=== PATIENT | female | born 1940 | race Caucasian/White ===

== ENCOUNTER 2017-02-19 09:28 | Inpatient (IN) | payer OTHER ==
--- NOTE | 2017-02-10 10:35 | GHP ---
[f rep st] PREOP HISTORY AND PHYSICAL DATE OF ADMISSION: 02/19/2017. She will be an a.m. admission for surgery at [facility] on Sunday February 19, 2017. PROBLEM: Left hip arthritis. HISTORY OF PRESENT ILLNESS: The patient is a 76-year-old woman admitted for a left total hip arthroplasty. I did her right total hip arthroplasty on November 12, 2016. She has had a very good result. She has had progressive pain in both hips for 1 year. She is having daily pain and night pain. Her activities are very limited. She has used ibuprofen. She has trouble putting on her shoes and socks on the left foot. She has tried physical therapy, but it did not help and it aggravated her pain. Her activities of daily living are now very limited. She will undergo a left total hip arthroplasty. PAST MEDICAL HISTORY: She has history of asthma. She is also treated for squamous cell carcinoma. No history of serious MRSA infections, DVT, heart disease or sleep apnea. CURRENT MEDICATIONS: Advair inhaler. She takes vitamins and calcium. DRUG ALLERGIES: Sulfa causes a rash. SOCIAL HISTORY: The patient is . She is a retired high school principal. She is a former smoker. She occasionally drinks alcohol. FAMILY HISTORY: Negative. PHYSICAL EXAMINATION: VITAL SIGNS: Height 5 feet 7 inches, weight 133 pounds. BMI 20.5. EYES: Conjunctivae and sclerae are clear. Pupils are round and reactive. MOUTH: Good oral hygiene. No loose teeth. CHEST: Clear. No wheezing. HEART: Regular rhythm. No murmurs. EXTREMITIES: Pertinent findings limited to her left hip. She has full hip extension and 90 degrees of flexion. External rotation 10 degrees. Internal rotation 0 degrees. Abduction 10 degrees. IMAGING: Her films show very severe degenerative arthritis of the left hip. She is [id number]. Extensive osteophyte formation is present. She is about 3 mm short on the left. The components for her right total hip arthroplasty look excellent. IMPRESSION ON ADMISSION: 1. Left hip severe degenerative arthritis. 2. Four months status post successful right total hip arthroplasty. 3. Treatment for asthma. PLAN: She will undergo a left total hip arthroplasty. The surgery has been described to her, including the risks, complications, expectations and recovery time. I have discussed with her the risk of dislocation, leg length inequality , infection and sciatic nerve injury. She understands there is a small risk for future revision surgery. I have advised her that with bilateral procedures , there can be mild [id number] differences in the recovery and even in the final result. All her questions have been answered, and she consents to surgery. /[id number]/MODL MTDD
[~2017-02-19 09:28] MED LIST: ACETAMINOPHEN 325 MG TAB PO ONE; CEFAZOLIN 2 GM/DEXTR 100 ML IV ONE; CHLORHEXIDINE GLUC HIBICLENS 118 ML BTL TP ONE; DEXAMETHASONE 4 MG/ML VIAL IVP ONE; FAMOTIDINE 20 MG TAB PO ONE; POVIDONE-IODINE 20 ML in SODIUM CL IRRIG SOLUTION 500 ML IRR ONE; ROPI/epiNEPH/KETOROLAC JOINT COCKTAIL IU ONE; TRANEXAMIC ACID 1,200 MG in NS 100 ML IV ONE
[2017-02-19] MEDS ORDERED: SKIN ADHESIVE (DERMABOND) 1 EACH TP ONE (09:49)
[2017-02-19] MEDS ORDERED: EPINEPHrine 1 MG/10 ML SYR IVP ONE (09:49)
[2017-02-19] MEDS ORDERED: ceFAZolin 1 GM/5 ML SYR ONE (09:49)
[2017-02-19] MEDS ORDERED: LIDOCAINE 1% 5 ML SDV ID PRN (10:14)
[2017-02-19] MEDS ORDERED: LR 1,000 ML IV ONE (10:14)
[2017-02-19] MEDS ORDERED: DEXAMETHASONE 4 MG/ML VIAL ONE (10:20)
[2017-02-19] MEDS ORDERED: CEFAZOLIN 2 GM/DEXTROSE/100 ML BAG IV ONE (10:21)
[2017-02-19] MEDS ORDERED: FAMOTIDINE 20 MG TAB ONE (10:21)
[2017-02-19] MEDS ORDERED: ACETAMINOPHEN 325 MG TAB ONE (10:21)
[2017-02-19] MEDS ORDERED: fentaNYL 100 MCG/2 ML INJ ONE ×2 (11:07→14:35)
[2017-02-19] MEDS ORDERED: MIDAZOLAM 2 MG/2 ML VIAL ONE ×2 (11:08→12:13)
[2017-02-19] MEDS ORDERED: ONDANSETRON 4 MG/2 ML VIAL ONE (11:08)
[2017-02-19] MEDS ORDERED: PROPOFOL/EMULSION 500 MG/50 ML BOTTLE IV ONE (11:08)
[2017-02-19] MEDS ORDERED: PROPOFOL 200 MG/20 ML VIAL ONE (12:42)
--- NOTE | 2017-02-19 13:59 | POSTOPPROG ---
Post Op Note Date of Operation: 02/19/17 Surgeon: Rupert Andrews [employer] Supervisor: Branden Anesthesiologist: Jeremiah Anesthesia: IV Sedation, Spinal Post-op Diagnosis: L hip arthtitis Procedure: L MILES Inf/Abcess present in the surg proc area at time of surgery?: No EBL: 100-500
[2017-02-19] MEDS ORDERED: NS 500 ML IV PRN (14:14)
[2017-02-19] MEDS ORDERED: BISACODYL 10 MG SUPP PR PRN (14:14)
[2017-02-19] MEDS ORDERED: diphenhydrAMINE 25 MG CAP PO PRN (14:14)
[2017-02-19] MEDS ORDERED: ONDANSETRON 4 MG/2 ML VIAL IVP PRN (14:14)
[2017-02-19] MEDS ORDERED: DIPHENOXYLATE/ATROPINE LOMOTIL 1 TAB PO PRN (14:14)
[2017-02-19] MEDS ORDERED: PHARMACY PAIN CONSULT 1 EA MISC PRN (14:14)
[2017-02-19] MEDS ORDERED: LACTULOSE 20 GM/30 ML UDCUP PO PRN (14:14)
[2017-02-19] MEDS ORDERED: ONDANSETRON DISINTEGRATING 4 MG TAB PO PRN (14:14)
[2017-02-19] MEDS ORDERED: POLYETHYLENE GLYCOL 3350 17 GM PKT PO PRN (14:14)
[2017-02-19] MEDS ORDERED: CYCLOBENZAPRINE 10 MG TAB PO PRN (14:14)
[2017-02-19] MEDS ORDERED: MAGNESIUM HYDROXIDE 30 ML UDCUP PO PRN (14:14)
[2017-02-19] MEDS ORDERED: METOCLOPRAMIDE 10 MG/2 ML VIAL IVP PRN (14:14)
[2017-02-19] MEDS ORDERED: TEMAZEPAM 15 MG CAP PO PRN (14:14)
[2017-02-19] MEDS ORDERED: traMADol 50 MG TAB PO PRN (14:14)
[2017-02-19] MEDS ORDERED: KETOROLAC 30 MG/1 ML SDV IVP PRN (14:14)
[2017-02-19] MEDS ORDERED: PROMETHAZINE HCL 25 MG SUPPR PR PRN (14:14)
[2017-02-19] MEDS ORDERED: LR 1,000 ML IV SCH (14:30)
[2017-02-19] MEDS ORDERED: hydrALAZINE 20 MG/ML VIAL IVP PRN (14:30)
[2017-02-19] MEDS ORDERED: KETOROLAC 30 MG/1 ML SDV ONE (14:35)
[2017-02-19] MEDS ORDERED: oxyCODONE IR 5 MG TAB ONE (14:36)
--- NOTE | 2017-02-19 14:57 | GOP ---
[f rep st] OPERATIVE REPORT DATE OF OPERATION: 02/19/2017 SURGEON: Rupert Andrews MD HAT CONE INSPECTOR: ADRIENNE Campbell CFA. ANESTHESIA: A combination of Marcaine, spinal, and IV sedation by Dr. Sabine Daniels. PREOPERATIVE DIAGNOSIS: Left hip degenerative arthritis. POSTOPERATIVE DIAGNOSIS: Left hip degenerative arthritis. PROCEDURE PERFORMED: Left total hip arthroplasty, ceramic femoral head on highly cross-linked polye thylene cup liner. FINDINGS: DESCRIPTION OF PROCEDURE: The patient was given 2 g of IV Ancef preoperatively within 60 minutes of surgery. She also received IV tranexamic acid at a dose of 20 mg/kg. She was placed on the operat ing room table and given spinal anesthesia with Marcaine by Dr. Daniels. She was then placed supine and given IV sedation. A Williamson catheter was not used. Because she had a skin abnormality on her l ower legs, I did not use a MICHAEL stocking on her non surgical side. She did have an SCD. She was rol led to the right lateral decubitus position. The position was secured with the pegboard table attac hment. An axillary roll was used, and all pressure points were carefully padded. I was careful to lock her pelvis in a rigid vertical position. Her perineum was isolated with plastic adhesive drape s. Her left hip and left lower extremity were prepped with ChloraPrep. They were draped free using sterile sheets, stockinette, and Ioban plastic drapes. I put an additional wrap of Coban around he r left lower leg. The [employer] time-out was performed to verify the correct surgical side and site, a nd the correct patient identity. The [place] time-out was also performed. I made a 4 to 5-inch straight oblique posterolateral hip skin incision. The subcutaneous tissues we re sharply divided, and hemostasis was obtained using electrocautery. Her fascia berna was identifie d. I just split a small section of the fascia berna. I then curved posteriorly and proximally and s plit the fascia of the gluteus ryan and bluntly split the muscle fibers. I was using a modified direct superior approach. The Charnley self-retaining retractor was inserted. Her sciatic nerve wa s located, partially exposed and protected throughout the procedure. The external rotators and the posterior hip capsule were divided in separate layers, tagged and reflected posteriorly. I left the piriformis intact and the quadratus intact. A smooth 8-inch Steinmann pin was inserted vertically into the ilium, superior to the acetabulum. A 1/8-inch drill bit was inserted vertically into the g reater trochanter and parallel to the first pin. The distance between the 2 was measured for leg le ngth reference. Her femoral head was dislocated posteriorly. Severe degenerative changes were pres ent on the femoral head. Her femoral neck was osteotomized at the appropriate level and inclination . I was careful to preserve all of the posterior and anterior capsule. The remnant of her damaged lab rum was excised. I prepared the femur first. This allowed me to instructional interventionist the amount of natural femoral neck anteversion . She had 12-15 degrees of natural femoral neck anteversion. This allowed me to later determine th e correct amount of cup anteversion. The canal was opened laterally with a box chisel. I reamed an d broached sequentially up to a size 7. The size 7 broach was used as a trial stem. I was careful to lateralize adequately. Appropriate retractors were inserted to expose her acetabulum. The acetabulum was reamed sequential ly up to 51 mm. I selected a 52 mm [place] Tritanium solid-backed hemispherical shell. This was ta pped securely into place in the proper degree of inclination and anteversion. I inserted a screw ho le metal dome hole plug. I performed a series of trial reductions to determine length and stability . I took an intraoperative cross-table AP pelvis x-ray. Leg lengths looked appropriate. It looked like I could have a little more cup anteversion. I went ahead and repositioned the cup in 5 or 10 degrees of additional anteversion. The cup fixation was very tight, and I did not think supplementa l screw fixation was necessary. The 10-degree lip Rayo X3 highly cross-linked polyethylene liner was inserted and tapped securely into place. I dialed the 10-degree overhang so it was directly posteriorly. I chose the [place] S ecur-Fit Max stem and a size 7 with standard offset. This was inserted press-fit and was very tight . I did 1 final trial reduction and confirmed that the -2.5 mm neck length with a 32 mm head was th e proper combination. I selected the [place] Biolox Delta ceramic head with an outside diameter of 32 mm and a neck length of -2.5 mm. The head was tapped securely onto the clean trunnion. The acet abulum was irrigated, cleaned, and the hip was reduced 1 final time. She had excellent anterior and posterior stability and appropriate length. 40 mL of the joint anesthetic cocktail was injected into the capsule, the deep musculature, and subc utaneous tissues around the skin edges. The joint was thoroughly irrigated 1 final time with a dilu te Betadine solution. Her sciatic nerve was reinspected and looked unharmed. The external rotators and the posterior hip capsule were repaired in separate layers with #[address] ill holes in the greater trochanter. Her piriformis was still intact. The fascia berna was closed f irst with a couple of interrupted [id number] #2 FiberWire sutures followed by a running #2 luis ed Ethicon Stratafix PDO suture. The subcutaneous tissues were closed with a running 0 barbed Ethic on Stratafix Monoderm suture. The skin was closed with a running 3-0 barbed Ethicon Stratafix Monod erm subcuticular suture. The skin edges were reapproximated and sealed with Dermabond glue. The wo und was covered with a strip of Telfa, and everything was held in place with a piece of clear plasti c Tegaderm. An SCD was applied to her left lower extremity. She requested to not wear a MICHAEL stocking because of the skin lesions on her lower leg. An abduction pillow was placed between her knees. She was awak ened from anesthesia and rolled to the supine position on her [facility]. She was taken to PAC U in satisfactory condition. There were no recognized intraoperative complications. The estimated blood loss was about 300 mL. The sponge and needle counts were correct on 2 occasions. I used a [place] titanium press-fit solid-backed acetabular shell with an outside diameter of 52 mm. The liner was a Rayo X3 10-degree highly cross-linked liner with an inside diameter of 32 mm. The femoral component was a standard offset Secur-Fit Max stem and a size 7 and press-fit. The femo ral head was a Rayo Biolox Delta ceramic head with a -2.5 mm neck length and a 32 mm outside diam eter. Amarjit Grajeda and Justin Vega acted as surgical assistants. Their assistance was a sofia cho. /[id number]/MODL
[2017-02-19 17:26] VITALS: RESP 16
[2017-02-19] MEDS: ACETAMINOPHEN 325 MG TAB PO SCH (17:28)
[2017-02-19] MEDS: TRANEXAMIC ACID 650 MG TAB PO SCH (17:29)
[2017-02-19] MEDS: ceFAZolin 2 GM/DEXTROSE 100 ML IV SCH (20:09)
[2017-02-19] MEDS: FAMOTIDINE 20 MG TAB PO SCH (20:11)
[2017-02-19] MEDS: SENNOSIDES/DOCUSATE SODIUM TAB PO SCH (20:11)
[2017-02-19] MEDS: ASPIRIN 325 MG TAB PO SCH (20:12)
[2017-02-19] MEDS: FLUTICASONE/SALMETER 250/50MCG DISKUS IH SCH (20:37)
[2017-02-20] MEDS: ACETAMINOPHEN 325 MG TAB PO SCH ×2 (00:08→05:38)
[2017-02-20] MEDS: oxyCODONE IR 5 MG TAB PO PRN ×3 (00:09→08:59)
[2017-02-20] MEDS: TRANEXAMIC ACID 650 MG TAB PO SCH ×2 (00:09→08:59)
[2017-02-20] MEDS: ceFAZolin 2 GM/DEXTROSE 100 ML IV SCH (05:37)
[2017-02-20 05:38] LABS: HEMATOCRIT 32.2 % (38.0-47.0); HEMOGLOBIN 10.6 g/dL (12.6-16.3)
--- NOTE | 2017-02-20 07:38 | SOAPPROG ---
SOAP Progress Note Assessment/Plan: Assessment: Afebrile. Moderate pain. Up and walking in room and to BR May not be fully emptying bladder. H/H is good. Sciatic nerve intact. Dsg is dry. Films look good. Plan:Up and walking with PT today. Home later today if emptying bladder. 02/20/17 07:36 Objective: Vital Signs Temp Pulse Resp BP Pulse Ox 37 C 54 L 16 145/57 H 95 02/20/17 03:59 02/20/17 03:59 02/20/17 03:59 02/20/17 03:59 02/20/17 03:59 Laboratory Results 02/20/17 05:16 02/19/17 02/20/17 02/21/17 05:59 05:59 05:59 Intake Total 3085 Output Total 925 Balance 2160 ICD10 Worksheet Patient Problems: Problems Problem Status Onset Osteoarthritis of left hip Acute COPD (chronic obstructive pulmonary disease) Acute Hypoxia Acute Osteoarthritis of right hip Acute
--- NOTE | 2017-02-20 08:05 | GDS ---
[f rep st] DISCHARGE SUMMARY ADMISSION DIAGNOSIS: Left hip degenerative arthritis. DISCHARGE DIAGNOSIS: Left hip degenerative arthritis. OPERATION PERFORMED: 02/19/2017, a left total hip arthroplasty, ceramic femoral head on highly cros slinked polyethylene cup liner. POSTOPERATIVE COMPLICATIONS: None. CONDITION ON DISCHARGE: Improved. DESCRIPTION OF HOSPITAL COURSE: The patient was admitted to the hospital the morning of surgery. H er admission CBC was normal. The same day under a combination of Marcaine, spinal and IV sedation, she underwent a left total hip arthroplasty. A Williamson catheter was not used. She was treated with m ultimodal DVT prophylaxis, including aspirin and early mobilization. On the 1st postoperative day, her hemoglobin and hematocrit were 10.6 and 32.2. She was seen by Physical Therapy and made satisfa ctory progress with ambulation and stairs. By the time of discharge, she was afebrile, her dressing was dry, and she was independent walking with a walker. DISPOSITION: The patient was discharged to her home. She will go to outpatient physical therapy. Continue aspirin 325 mg p.o. daily for 21 days. She may progress to full weightbearing on the left as tolerated. Use an abduction pillow in bed for 3 weeks. She will not be using the Noel stockings because of some skin lesions on her lower legs. I will see her back in the office on 03/13/2017. I f there are any problems, she is to call me at the office. She has prescriptions for oxycodone and tramadol for pain control. /[id number]/MODL
[2017-02-20 08:11] VITALS: BP 98/79; PULSE 53; TEMP 97.7
[2017-02-20 08:58] VITALS: O2SAT 89
[2017-02-20] MEDS: SENNOSIDES/DOCUSATE SODIUM TAB PO SCH (08:59)
[2017-02-20] MEDS: FAMOTIDINE 20 MG TAB PO SCH (08:59)
[2017-02-20] MEDS: ASPIRIN 325 MG TAB PO SCH (08:59)
[2017-02-20] MEDS ORDERED: MULTIVITAMINS 1 EACH TAB PO SCH (09:00)
[2017-02-20] MEDS ORDERED: GLUCOSAMINE SULF 500 MG CAP PO SCH (09:00)
[2017-02-20] MEDS ORDERED: FERROUS SULFATE 140 MG TAB.ER PO SCH (09:00)
[2017-02-20] MEDS: FLUTICASONE/SALMETER 250/50MCG DISKUS IH SCH (09:45)
[2017-02-20] MEDS ORDERED: CALCIUM CARBONATE 500 MG TAB PO SCH (12:00)
== END 2017-02-20 10:24 | disposition home or self-care (01) | DRG 470 ==
LOC: F3E 09:28 → F3N 11:20
PROVIDERS: ADMIT Orthopaedic Surgery; ATTEND Orthopaedic Surgery
PROC: 0SRB04Z Replacement of Left Hip Joint with Ceramic on Polyethylene Synthetic Substitute, Open Approach (ICD-10-PCS; principal; 2017-02-19 11:15)
DX: M16.12 Unilateral primary osteoarthritis, left hip (principal); J45.909 Unspecified asthma, uncomplicated; I10 Essential (primary) hypertension; Z99.81 Dependence on supplemental oxygen
CPT/HCPCS: 97161-GP; 97165-GO; G8978-GP-CI; G8979-GP-CI; G8980-GP-CI; G8987-GO-CI; G8988-GO-CI; G8989-GO-CI; J0171; J0690; J1100; J1885; J2250; J2405; J2704; J2795; J3010

== ENCOUNTER → 2017-08-05 | Outpatient (CLI) | payer OTHER | LOC: FIMAGING 15:30 | PROVIDERS: ATTEND Internal Medicine Hematology & Oncology | DX: Z12.31 Encounter for screening mammogram for malignant neoplasm of breast (principal) | CPT/HCPCS: G0202 ==

== ENCOUNTER 2017-10-22 18:33 | Inpatient (IN) | payer OTHER ==
[2017-10-22] MEDS ORDERED: ONDANSETRON 4 MG/2 ML VIAL ONE ×2 (18:53→23:46)
--- NOTE | 2017-10-22 19:05 | EDPHY ---
H & P Smoking Status: Never smoked Time Seen by Provider: 10/22/17 18:51 HPI/ROS: CHIEF COMPLAINT: Fever, abdominal pain HISTORY OF PRESENT ILLNESS: 76-year-old female presents to the emergency department with abrupt onset of abdominal pain that began yesterday. The patient initially thought that this was "bad gas ". She states that when she woke up this morning the pain was still there and now she feels like it is getting worse. She feels nauseous although no vomiting. No diarrhea. She said she has had no bowel movement yesterday or today. She has never had pain like this in the past. No reported trauma. No back pain. She has felt feverish and chilled. No chest pain or difficulty breathing. No urinary symptoms. REVIEW OF SYSTEMS: Constitutional: No fever, no chills. Eyes: No double or blurry vision. ENT: No sore throat. Respiratory: No cough, no shortness of breath. Cardiac: No chest pain. Gastrointestinal: Abdominal pain as above. No vomiting or diarrhea. Genitourinary: No dysuria. Musculoskeletal: No neck or back pain. Skin: No rashes. Neurological: No headache. (Paul Henry) Past Medical/Surgical History: Bilateral hip replacements, laminectomy, uses oxygen at night (Paul Henry) Social History: (Paul Henry) Physical Exam: General Appearance: Alert, moderate distress. Temperature 37.4degrees. 161/76 , initially 78% on room air. Anxious. Eyes: Pupils equal and round. Extraocular motions are all intact. ENT: Mouth: Mucous membranes moist. Respiratory: No wheezing, rhonchi, or rales, lungs are clear to auscultation. Cardiovascular: Regular rate and rhythm. Gastrointestinal: Abdomen is soft. Tenderness with palpation especially in the left and right lower quadrant as well as in the suprapubic area. There is no rebound, guarding or masses noted. No CVA tenderness bilaterally. Neurological: Alert and oriented x 3, cranial nerves II through XII grossly intact Skin: Warm and dry, no rashes. Musculoskeletal: Nontender to palpate along the cervical, thoracic or lumbar spine. Neck is supple. Extremities: Full range of motion and no peripheral edema. Psychiatric: Patient is oriented X 3, there is no agitation. (Paul Henry M) Constitutional: Initial Vital Signs Temperature (C) 37.4 C 10/22/17 18:41 Heart Rate 87 10/22/17 18:41 Respiratory Rate 24 H 10/22/17 18:41 Blood Pressure 161/76 H 10/22/17 18:41 O2 Sat (%) 78 L 10/22/17 18:41 O2 Delivery Mode Nasal Cannula O2 (L/minute) 2.5 Allergies/Adverse Reactions: Sulfa (Sulfonamide Antibiotics) Allergy (Verified 10/22/17 18:39) Home Medications: Medication Instructions Recorded Acetamn/Diphenhydramine 500/25 1 each PO HS PRN 05/03/16 [Tylenol PM (*)] Calcium Carbonate [Oyster Shell 1,000 mg PO DAILY@1200 05/03/16 Calcium 500 mg (*)] Ibuprofen [Motrin (*)] 600 mg PO DAILY PRN 05/03/16 Multivitamins [Multivitamin (*)] 1 each PO DAILY 05/03/16 Fluticasone/Salmeter 250/50Mcg 1 puffs IH BID #1 disk 05/04/16 [Advair 250/50 (*)] Glucosamine Sulfate [Glucosamine 500 mg PO DAILY 10/30/16 Sulfate 500 MG (*)] Albuterol [Proventil Inhaler HFA 1 - 2 puffs IH Q4H PRN 10/22/17 (*)] Medical Decision Making - Diagnostics Imaging: Discussed imaging studies w/ call center analyst Radiologist, I viewed and interpreted images myself - Diagnostics Imaging Results: Imaging Impressions Abdomen CT 10/22/17 19:36 Impression: 1. Findings concerning for tip appendicitis and/or small abscess with an obstructing fecalith. 2. Small free fluid in the pelvis and mildly dilated loops of ileum are likely reactive. Dr. Gutierrez discussed these findings by telephone with PAUL HENRY on 2016 at 20:43. Chest X-Ray 10/22/17 21:00 Impression: Patchy right greater than left basilar airspace opacities which may represent atelectasis and/or multifocal pneumonia in the appropriate clinical setting. ED Course/Re-evaluation: 76-year-old female presents to the emergency department with severe abdominal pain and fever. Laboratory studies [place] [address]. Chemistries are unremarkable. Troponin is negative. The patient was found to have O2 saturation on room air of 78%. She came up into the low 90s which is 2 L of nasal cannula oxygen. The patient has a history of COPD and uses oxygen only at nighttime. The nurse tried to ambulate the patient to the bathroom and the patient became acutely more short of breath. Patient was given a DuoNeb. CT imaging of the abdomen and pelvis reveals acute appendicitis to the tip with likely perforation and small abscess. Free fluid noted. The case was discussed with Dr. Jordy Dias, surgeon on-call, who came to evaluate the patient. He will take this patient to the operating room. The patient was given 1 g of Invanz IV. Dr. Jordy Dias is aware of the patient's hypoxemia. He recommended giving the patient nebulizer in the emergency department and then the patient will be taken to the operating room. I did consult the hospitalist, Dr. Nunes, who was willing to consult, however Dr. Jordy Dias did not feel that formal consultation by hospitalist was indicated. Dr. Jordy Dias is aware that the patient's D-dimer was elevated 0.65. Her troponin is negative. CT imaging also revealed mild dilatation of the pancreatic and hepatic ducts. The patient will require MRI and MRCP as an outpatient to further evaluate these. This was discussed with the patient. This was also discussed with Dr. Jordy Dias who is admitting the patient. The case was discussed with Dr. Sonia Estrella, [facility] supervising physician, who did not directly evaluate the patient but agrees with treatment and plan. (Paul Henry) Differential Diagnosis: Including but not limited to acute appendicitis, diverticulitis, bowel obstruction, sepsis (Paul Henry) Other Provider: The patient was evaluated and managed by the Physician Tuna Purse Seiner. I discussed the patient's presentation and course with the midlevel provider with them and agree with the evaluation. I briefly evaluated the patient. She is a 76-year-old female presents to the emergency department reporting abrupt onset of abdominal pain starting yesterday. She has felt feverish somewhat chilled. On examination she has bilateral lower quadrant tenderness with no guarding or rebound. Of note, the patient was hypoxic when she arrived to the emergency department and was noted to have increased work of breathing when ambulating to the bathroom. There were no wheezes auscultated on examination of the patient does have somewhat diminished breath sounds. She does have history of COPD and uses oxygen at night. Evaluation emergency department demonstrated probable perforated appendix. Patient was seen by Dr. Dias and will be admitted to the surgical service. With respect to her hypoxemia, patient's chest x-ray was interpreted by myself is not demonstrating a definitive pneumonia or congestive failure, radiology interpretation is pending. Troponin was normal, EKG was normal. BNP is pending at the time of her emergency department evaluation. Her work of breathing seemed to improve after receiving a neb treatment in the emergency department. Patient's hypoxemia was discussed with Dr. Dias. Dr. Dias feels comfortable being the admitting physician. He will consult hospital Medicine as needed. Patient was taken to the operating room for appendectomy. My co-signature indicates that I have reviewed this chart and I agree with the findings and plan of care as documented. I am the secondary supervising physician. (Sonia Estrella) - Data Points Laboratory Results: Laboratory Results 10/23/17 09:45 10/23/17 09:45 10/23/17 10/23/17 09:45 09:45 WBC 17.07 10^3/uL H 10^3/uL (3.80-9.50) RBC 4.21 10^6/uL 10^6/uL (4.18-5.33) Hgb 12.8 g/dL g/dL (12.6-16.3) Hct 38.7 % % (38.0-47.0) MCV 91.9 fL fL (81.5-99.8) MCH 30.4 pg pg (27.9-34.1) MCHC 33.1 g/dL g/dL (32.4-36.7) RDW 13.8 % % (11.5-15.2) Plt Count 201 10^3/uL D 10^3/uL (150-400) Sodium 142 mEq/L mEq/L (134-144) Potassium 4.3 mEq/L mEq/L (3.5-5.2) Chloride 107 mEq/L mEq/L (97-110) Carbon Dioxide 23 mEq/l mEq/l (22-31) Anion Gap 12 mEq/L mEq/L (8-16) BUN 22 mg/dL mg/dL (7-23) Creatinine 0.8 mg/dL mg/dL (0.6-1.0) Estimated GFR > 60 Glucose 145 mg/dL H mg/dL (70-100) Calcium 8.8 mg/dL mg/dL (8.5-10.4) Total Bilirubin 0.7 mg/dL mg/dL (0.1-1.4) AST 21 IU/L IU/L (14-46) ALT 28 IU/L IU/L (9-52) Alkaline Phosphatase 60 IU/L IU/L (38-126) Total Protein 5.5 g/dL L g/dL (6.3-8.2) Albumin 3.1 g/dL L g/dL (3.5-5.0) Microbiology Results: MICROBIOLOGY 10/23/17 00:02 Peritoneal Fluid - Eswab Gram Stain - Final Medications Given: Acetaminophen (Tylenol) 1,000 mg PO Q8H CLAUDE Stop: 04/20/18 21:14 Last Admin: 10/23/17 13:04 Dose: 1,000 mg Ertapenem (Invanz) 1 gm IVP DAILY CLAUDE PRN Reason: Protocol Stop: 11/22/17 12:59 Last Admin: 10/23/17 13:04 Dose: 1 gm Lactated Ringer's (Lr) 1,000 mls @ 100 mls/hr IV CONT CLAUDE Stop: 04/20/18 21:29 Last Admin: 10/23/17 13:12 Dose: 1,000 mls Ketorolac Tromethamine (Toradol) 15 mg IVP Q6HRS CLAUDE Stop: 10/28/17 00:00 Last Admin: 10/23/17 18:15 Dose: 15 mg Fluticasone/Salmeterol (Advair) 1 puffs IH BID CLAUDE Stop: 04/20/18 22:14 Last Admin: 10/23/17 09:59 Dose: Not Given Discontinued Medications Albuterol/Ipratropium (Duoneb) 3 ml IH EDNOW ONE Stop: 10/22/17 22:00 Last Admin: 10/22/17 22:06 Dose: 3 ml Cefazolin Sodium (Ancef Syringe) Confirm Administered Dose 2 gm .ROUTE .STK-MED ONE Stop: 10/22/17 23:03 Last Admin: 10/23/17 00:25 Dose: 2 gm Ertapenem (Invanz) 1 gm IVP EDNOW ONE PRN Reason: Protocol Stop: 10/22/17 20:51 Last Admin: 10/22/17 21:50 Dose: 1 gm Heparin Sodium (Porcine) (Heparin Sc Injection) Confirm Administered Dose 10, 000 unit .ROUTE .STK-MED ONE Stop: 10/22/17 23:02 Last Admin: 10/23/17 00:25 Dose: 10,000 unit Lactated Ringer's (Lr) 1,000 mls @ 0 mls/hr IV ONCE ONE PRN Reason: KVO Stop: 10/22/17 23:10 Last Admin: 10/23/17 02:37 Dose: Not Given Morphine Sulfate (Morphine) 2 mg IVP EDNOW ONE Stop: 10/22/17 19:01 Last Admin: 10/22/17 19:10 Dose: 2 mg Morphine Sulfate (Morphine) 2 mg IVP EDNOW ONE Stop: 10/22/17 21:14 Last Admin: 10/22/17 21:19 Dose: 2 mg Departure - Departure Disposition: [facility] Acute Clinical Impression: Hypoxia Acute appendicitis Qualifiers: Acute appendicitis type: unspecified acute appendicitis type Qualified Code(s) : K35.80 - Unspecified acute appendicitis Fever Qualifiers: Fever type: unspecified Qualified Code(s): R50.9 - Fever, unspecified Condition: Fair
[2017-10-22 19:13] LABS: % IMMATURE GRANULYOCYTES 0.5 % (0.0-1.1); ABSOLUTE IMMATURE GRANULOCYTES 0.08 10^3/uL (0.00-0.10); ADD DIFF? NO; ADD MORPH? NO; ADD SCAN? NO; ATYPICAL LYMPHOCYTE FLAG 0 (0-99); FRAGMENT RBC FLAG 0 (0-99); HEMATOCRIT 44.6 % (38.0-47.0); HEMOGLOBIN 15.4 g/dL (12.6-16.3); LEFT SHIFT FLG 0 (0-99); LIPEMIA HEMOLYSIS FLAG 90 (0-99); MEAN CELL HEMOGLOBIN 31.2 pg (27.9-34.1); MEAN CELL HEMOGLOBIN CONCENTR. 34.5 g/dL (32.4-36.7); MEAN CELL VOLUME 90.3 fL (81.5-99.8); MEAN PLATELET VOLUME 9.6 fL (8.7-11.7); PLATELET CLUMPS FLAG 0 (0-99); PLATELET COUNT 262 10^3/uL (150-400); RED BLOOD CELL COUNT 4.94 10^6/uL (4.18-5.33); RED CELL DISTRIBUTION WIDTH 13.7 % (11.5-15.2)
[2017-10-22 19:25] LABS: ANION GAP 11 mEq/L (8-16); CARBON DIOXIDE 23 mEq/l (22-31); CHLORIDE 104 mEq/L (97-110); CREATININE 0.8 mg/dL (0.6-1.0); GLOMERULAR FILTRATION RATE > 60; GLUCOSE 126 mg/dL (70-100); SODIUM 138 mEq/L (134-144)
[2017-10-22] MEDS ORDERED: IOPAMIDOL (ISOVUE-300) 100 ML BTL ONE (19:39)
[2017-10-22 20:49] LABS: COLOR YELLOW; LEUKOCYTE ESTERASE,URINE 2+ (NEGATIVE); NITRITE,URINE NEGATIVE (NEGATIVE)
[2017-10-22] MEDS ORDERED: ERTAPENEM 1 GM VIAL IVP ONE (20:50)
[2017-10-22 20:51] LABS: MUCUS TRACE /lpf (NONE-1+); WBC,URINE 15-25 /hpf (0-3)
[2017-10-22] MEDS ORDERED: ONDANSETRON 4 MG/2 ML VIAL IVP PRN ×2 (21:15→23:49)
[2017-10-22] MEDS ORDERED: HYDROmorphone HCL/NS/PF 0.4 MG/2 ML SYR IVP PRN (21:15)
--- NOTE | 2017-10-22 21:36 | CPEKG ---
Heart Rate: 86 RR Interval: 698 P-R Interval: 192 QRSD Interval: 84 QT Interval: 372 QTC Interval: 445 P [place]: 31 QRS [place]: 17 T Wave [place]: 69 EKG Severity - ABNORMAL ECG - EKG Impression: SINUS RHYTHM EKG Impression: LOW VOLTAGE IN FRONTAL LEADS EKG Impression: CONSIDER LEFT VENTRICULAR HYPERTROPHY Electronically Signed By: Brent Miller 22-Oct-2017 21:51:37
[2017-10-22] MEDS ORDERED: IPRATROPIUM/ALBUTEROL 3 ML DEYVIAL IH ONE (21:59)
[2017-10-22] MEDS: ACETAMINOPHEN 500 MG TAB PO SCH (22:06)
[2017-10-22] MEDS ORDERED: ALBUTEROL 200 PUFFS/18 GM MDI IH PRN (22:13)
--- NOTE | 2017-10-22 22:30 | GHP ---
[f rep st] PREOP HISTORY AND PHYSICAL DATE OF ADMISSION: 10/22/2017 ADMITTING DIAGNOSIS: Acute appendicitis with appendicolith and possible focal rupture of the tip of the appendix. HISTORY: The patient is a 76-year-old female, who was in her usual state of health until yesterday afternoon when she had the onset of "gas pains." These became increasingly more uncomfortable as the day progresses. She had a normal lunch and a normal dinner. She moved her bowels in the middle of all this and had a slight improvement of the pain. She did not sleep well due to the pain, but had no nausea or vomiting. For breakfast, she was only slightly hungry and had a small amount to eat. She did not have lunch. The pain continued to increase. She described it as "gas in the lower abdomen." She has had no diarrhea in the past 2 weeks ago, though she has had some rhinorrhea. She states she has allergies on a year-round basis. She has had no prior abdominal surgery. She has had no prior similar symptoms. There is no history of inflammatory bowel disease. She presented to the ER and was evaluated. A CT of her abdomen showed an appendicolith and a dilatation of the tip of the appendix with a small amount of fluid at the tip of the appendix. Her white count was 15,700 with 88% neutrophils. Hematocrit was 45. Her platelet count was 262. Sodium is 141, her potassium is 3.8. Her lactate was 1.0, gravity is 1.035. She has 15-25 white cells per high-power field. Note is made that she was hypoxic in the waiting room at 76, but she perked up to 93 on 2 L. She normally uses home O2 at 3 L, but only at night. She does have a diagnosis of COPD. I was asked to come see her for the question of appendicitis. Note is made that her EKG was normal, her chest x-ray is normal and her troponins were normal. SOCIAL HISTORY: She smoked from ages 17 to approximately 48 at about a half a pack a day. She drinks 1 to 1-1/2 glasses of wine daily. ALLERGIES: She has a rash and fever with sulfa drugs. PAST SURGICAL HISTORY: Include a tonsillectomy and adenoidectomy. She had bilateral hip replacements, She had L4-5 laminectomy. She had a left carpal tunnel surgery. She has had bilateral cataract extraction with lens placement. She had a right lumpectomy 14 years ago, treated with radiation and chemotherapy for breast cancer. She has undergone right breast reconstruction and left breast reduction. There is no history of rheumatic fever, tuberculosis, hepatitis, transfusions. REVIEW OF SYSTEMS: She wears lenses for reading. She wears bilateral hearing aids, although the right ear is worse than the left. She has dental crowns. She does have COPD as mentioned above. She has had a murmur which she has been told was benign since age 10. Last mammogram was last June. She does get short of breath going up stairs and certainly gets [place] breath [place]. She has not had any steroids in the last 6 months. MEDICATIONS: Include Advair 250/50 one puff twice a day. She uses an albuterol inhaler p.r.n. She takes calcium carbonate 500 mg 2 times a day. She uses glucosamine 500 mg daily. She takes a multivitamin and home O2 as listed above. PHYSICAL EXAMINATION: GENERAL: She is pleasant, awake and alert. LYMPH NODES: There is no cervical, supraclavicular, axillary or inguinal lymphadenopathy. NECK: Unremarkable. There are no carotid bruits. Thyroid is not enlarged. LUNGS: Clear to auscultation. CARDIAC: Shows S1, S2 to be normal. I do not appreciate a murmur at this time. ABDOMEN: Slightly distended. Bowel sounds are hypoactive, but present. She is tender with cough in the mid hypogastrium at a scale of 3 with cough. Psoas and obturator signs are negative. To palpation, her left upper quadrant is 1 on a scale of 1-10, left mid abdomen is 1, left lower quadrant is 2, epigastrium is 1, periumbilical area is 2, suprapubic area is 3, right upper quadrant is 1, right mid abdomen is 2, right lower quadrant is 4. ADDITIONAL FINDINGS: Lactate is 1.0, and her temperature is 38.9. She will be given nebulizers to see if we can optimize her pulmonary dysfunction prior to surgery. There is a possibility she may be placed in the ICU postoperatively (or at least the step-down unit) depending on how she does at surgery. /[id number]/MODL MTDD
[2017-10-22] MEDS ORDERED: HEPARIN 5,000 UNIT/0.5 ML SYR ONE (23:01)
[2017-10-22] MEDS ORDERED: ceFAZolin 1 GM/5 ML SYR ONE (23:02)
[2017-10-22] MEDS ORDERED: LR 1,000 ML IV ONE (23:09)
[2017-10-22] MEDS ORDERED: PROPOFOL 200 MG/20 ML VIAL ONE (23:19)
[2017-10-22] MEDS ORDERED: ROCURONIUM 50 MG/5 ML VIAL ONE (23:20)
[2017-10-22] MEDS ORDERED: LIDOCAINE 2% 5 ML SDV ONE (23:20)
[2017-10-22] MEDS ORDERED: fentaNYL 100 MCG/2 ML INJ ONE (23:21)
[2017-10-22] MEDS ORDERED: DEXAMETHASONE 4 MG/ML VIAL ONE (23:45)
[2017-10-22] MEDS ORDERED: NALOXONE HCL 0.4 MG/ML INJ IVP PRN (23:49)
[2017-10-22] MEDS ORDERED: fentaNYL 100 MCG/2 ML INJ IVP PRN (23:49)
[2017-10-22] MEDS ORDERED: PHENYLEPHRINE HCL 100 MCG/ML SYR ONE (23:51)
--- NOTE | 2017-10-22 23:52 | PDANEPAE ---
ANE History of Present Illness Emergent Lap Appy ANE Past Medical History - Cardiovascular History Hx Hypertension: No Hx Arrhythmias: No Hx Chest Pain: No Hx Coronary Artery / Peripheral Vascular Disease: No Hx CHF / Valvular Disease: No Hx Palpitations: No Cardiovascular History Comment: MINOR BENIGN MURMUR - Pulmonary History Hx COPD: Yes Hx Asthma/Reactive Airway Disease: No Hx Recent Upper Respiratory Infection: Yes Hx Oxygen in Use at Home: Yes O2 in Use at Home (L/minute): 3 Hx Sleep Apnea: No Pulmonary History Comment: EMPHYSEMA. HYPOXEMIA. SOB W/EXERTION - Neurologic History Hx Cerebrovascular Accident: No Hx Seizures: No Hx Dementia: No - Endocrine History Hx Diabetes: No - Renal History Hx Renal Disorders: No - Liver History Hx Hepatic Disorders: No - Neurological & Psychiatric Hx Hx Neurological and Psychiatric Disorders: No - Cancer History Hx Cancer: Yes Cancer History Comment: BREAST. SKIN - Congenital Disorder History Hx Congenital Disorders: No - GI History Hx Gastrointestinal Disorders: No - Other Health History Other Health History: NEG - Chronic Pain History Chronic Pain: Yes (LT HIP) - Surgical History Prior Surgeries: RT TOTAL HIP 10/2016. LUMPECTOMY R BREAST. RECONSTRUCTION R BREAST. CATARACTS. LAMINECTOMY X2 LUMBAR. TONSILLECTOMY ANE Review of Systems Review of Systems: ANE Patient History - Allergies Allergies/Adverse Reactions: Sulfa (Sulfonamide Antibiotics) Allergy (Verified 10/22/17 18:39) - Home Medications Home Medications: Acetamn/Diphenhydramine 500/25 [Tylenol PM (*)] 1 each PO HS PRN 05/03/16 [Last Taken 10/21/17] Calcium Carbonate [Oyster Shell Calcium 500 mg (*)] 1,000 mg PO DAILY@1200 05/03 [Last Taken 10/21/17] Ibuprofen [Motrin (*)] 600 mg PO DAILY PRN 05/03/16 [Last Taken 1 Week Ago ~] Multivitamins [Multivitamin (*)] 1 each PO DAILY 05/03/16 [Last Taken 10/21/17] Glucosamine Sulfate [Glucosamine Sulfate 500 MG (*)] 500 mg PO DAILY 10/30/16 [ Last Taken 10/21/17] Albuterol [Proventil Inhaler HFA (*)] 1 - 2 puffs IH Q4H PRN 10/22/17 [Last Taken 10/21/17] - NPO status NPO Since - Liquids (Date): 10/22/17 NPO Since - Liquids (Time): 08:00 NPO Since - Solids (Date): 10/22/17 NPO Since - Solids (Time): 08:00 - Smoking Hx Smoking Status: Never smoked - Family Anes Hx Family Hx Anesthesia Complications: NEG ANE Labs/Vital Signs - Labs Result Diagrams: 10/22/17 19:00 10/22/17 19:00 - Vital Signs Blood Pressure: 133/63 Heart Rate: 88 Respiratory Rate: 18 O2 Sat (%): 93 Height: 172.72 cm Weight: 58.967 kg ANE Physical Exam - Airway Neck exam: FROM Mallampati Score: Class 2 Mouth exam: normal dental/mouth exam - Pulmonary Pulmonary: clear to auscultation - Cardiovascular Cardiovascular: regular rate and rhythym - ASA Status ASA Status: III, E ANE Anesthesia Plan Anesthesia Plan: general endotracheal anesthesia
[2017-10-23] MEDS ORDERED: SUGAMMADEX SODIUM 200 MG/2 ML VIAL IVP ONE (00:33)
[2017-10-23] MEDS ORDERED: fentaNYL 100 MCG/2 ML INJ ONE (00:37)
--- NOTE | 2017-10-23 01:05 | POSTANESTH ---
Post Anesthetic Evaluation Cardiovascular Status: Normal, Stable Respiratory Status: Similar to Pre-op Cond. Level of Consciousness/Mental Status: Can Participate in Eval, Mildly Sleepy, Arousable Pain Control: Adequate, Prn Tx Ordered Nausea/Vomiting Control: Adequate, Prn Tx Ordered Complications Possibly Related to Anesthesia: None Noted
--- NOTE | 2017-10-23 01:08 | POSTOPPROG ---
Post Op Note Date of Operation: 10/23/17 Surgeon: Jordy Dias Anesthesia: GET(General Endotracheal) Pre-op Diagnosis: acute appendicitis with appendicolith Post-op Diagnosis: acute ruptured appendicitis with appendicolith and peritonitis Indication: acute appendicitis with appendicolith Procedure: laparoscopic appendectomy Findings: acute ruptured appendicitis with appendicolith and peritonitis Inf/Abcess present in the surg proc area at time of surgery?: Yes Depth: Organ Space EBL: Minimal Total fluids administered: 600cc in OR 1500cc in ER Complications: none Drains: Kaden Rodriguez Specimen(s): appendix peritoneal fluid
[2017-10-23] MEDS ORDERED: KETOROLAC 15 MG/1 ML SDV ONE (01:18)
[2017-10-23] MEDS: KETOROLAC 15 MG/1 ML SDV IVP SCH ×4 (01:37→18:15)
[2017-10-23] MEDS: LR 1,000 ML IV SCH ×2 (02:32→13:12)
[2017-10-23] MEDS: FLUTICASONE/SALMETER 250/50MCG DISKUS IH SCH ×2 (03:01→09:59)
[2017-10-23] MEDS: ACETAMINOPHEN 500 MG TAB PO SCH ×2 (05:35→13:04)
--- NOTE | 2017-10-23 07:07 | GOP ---
[f rep st] OPERATIVE REPORT DATE OF OPERATION: 10/23/2017 SURGEON: Jordy Dias MD ANESTHESIA: General endotracheal. PREOPERATIVE DIAGNOSIS: Acute appendicitis with appendicolith. POSTOPERATIVE DIAGNOSIS: Acute ruptured appendicitis with appendicolith and generalized peritonitis. PROCEDURE PERFORMED: Laparoscopic appendectomy. FINDINGS: Same. SPECIMENS: Appendix and peritoneal fluid for culture. ESTIMATED BLOOD LOSS: Minimal. INDICATIONS: Acute appendicitis with appendicolith. DESCRIPTION OF PROCEDURE: The patient was placed on the operating table in supine position. After induction of adequate general endotracheal anesthesia, the abdomen was carefully prepped and draped. A surgical time-out was carried out and agreed to by all members of the operative team. A curvilinear incision was made at the inferior umbilical fold. The incision was deepened with Bovie electrocautery and blunt dissection to expose the rectus sheath bilaterally. This was elevated between 2 Allis clamps and divided in the midline. A pursestring of #0 PDS was placed at the fascial level. The peritoneum was entered. An 11-12 mm disposable Mehrdad trocar was positioned and intra-abdominal insufflation was carried out to 15 mmHg. Oblique left lower quadrant and transverse suprapubic incisions were both made for placement of two additional ports (5 mm). Gross contamination was identified in the pelvis. This was carefully aspirated and sent for culture. Irrigation with heparin and Ancef containing irrigant was carried out. The appendix is (as seen on the CAT scan) draped over the pelvic brim. There was a large phlegmon present. The appendix was carefully cleared circumferentially. It was dissected back to the pelvic brim. Harmonic scalpel was used as needed. The appendix was divided at this level and this gangrenous portion of the appendix was removed in an EndoCatch bag. Pneumoperitoneum was re-established. The cecum was now carefully mobilized. An additional 2 cm centimeter of normal appendix was carefully freed. It was transected with a cuff of cecum using again a powered 35 mm Endo-MARYAN stapler. This was removed as a separate specimen but sent as part of the first. Small bowel was quite inflamed and was run for a distance of 3 feet. There was no evidence of Meckel' s diverticulum or mesenteric adenitis. Copious irrigation was continued. A 10 flat IOANA drain was placed in the pelvis and led out through the left lower quadrant 5 mm port. Secured the skin with a 2-0 silk suture. The IOANA was connected to bulb suction. Irrigation was used at the umbilical site. A simple suture of #0 PDS was placed through the fascia on either side. The pursestring was now tied and the simple sutures tied as well to provide a complete closure. Hemostasis was excellent. The infraumbilical incision was carefully irrigated with heparin and Ancef containing irrigant. Both the suprapubic and the infraumbilical incision were closed with inverted simple sutures of #4-0 Vicryl. Mastisol and Steri-Strips were placed. Band-Aids were positioned. The 2 x 2 was placed around the drain and a Tegaderm dressing was placed over it. Patient tolerated the procedure well and was transferred to recovery in stable and satisfactory condition. FLUIDS: Approximately 1500 mL in the ER and 600 mL in the OR. /[id number]/MODL MTDD
--- NOTE | 2017-10-23 09:42 | SOAPPROG ---
SOAP Progress Note Assessment/Plan: 10/23/17 09:37 POD#1 Assessment: S/p laparoscopic appendectomy for a perforated appendix (with appendicolith) and peritonitis complicated by COPD. She is eructating this morning and not passing gas but feels much better. Bowel sounds are noted. BNP Elevated. Oxygen requirements decreasing (now 2 lpm ) Peritoneal fluid 4+ wbc 4+ gram neg rods 3+ gram + rods 1+ gram + cocci Plan: Labs pending, will watch in step down for one more day 10/23/17 09:47 Subjective: I feel better. I'm not passing gas but I am burping Objective: Vital Signs Temp Pulse Resp BP Pulse Ox 36.6 C 60 19 113/62 94 10/23/17 07:36 10/23/17 07:36 10/23/17 07:36 10/23/17 07:36 10/23/17 07:36 Microbiology 10/23/17 00:02 Gram Stain - Final Peritoneal Fluid - Eswab 10/22/17 10/23/17 10/24/17 05:59 05:59 05:59 Intake Total 1842 Output Total 65 Balance 1777 IOANA 60cc serosanguineous output since recovery - Time Spent With Patient Time Spent With Patient: 25 - Pending Discharge Pending Discharge Within 24 Hours: No Pending Discharge Within 48 Hours: No Physical Exam - Physical Exam General Appearance: WD/WN, alert, no apparent distress EENT: normal ENT inspection Neck: non-tender, full range of motion, supple, normal inspection Respiratory: lungs clear, normal breath sounds Cardiac/Chest: regular rate, rhythm Abdomen: normal bowel sounds ((Hypoactive)), soft, other (Incisions clean and dry) Pelvic Exam: deferred Rectal: deferred Back: Normal inspection Skin: normal color, warm/dry Neuro/Psych: no motor/sensory deficits, alert, normal mood/affect, oriented x 3 ICD10 Worksheet Patient Problems: Problems Problem Status Onset Acute appendicitis Acute Fever Acute Hypoxia Acute COPD (chronic obstructive pulmonary disease) Acute Osteoarthritis of left hip Acute Osteoarthritis of right hip Acute
[2017-10-23 10:01] LABS: HEMATOCRIT 38.7 % (38.0-47.0); HEMOGLOBIN 12.8 g/dL (12.6-16.3); MEAN CELL HEMOGLOBIN 30.4 pg (27.9-34.1); MEAN CELL HEMOGLOBIN CONCENTR. 33.1 g/dL (32.4-36.7); MEAN CELL VOLUME 91.9 fL (81.5-99.8); RED BLOOD CELL COUNT 4.21 10^6/uL (4.18-5.33); RED CELL DISTRIBUTION WIDTH 13.8 % (11.5-15.2)
[2017-10-23 10:22] LABS: ALANINE AMINOTRANSFERASE 28 IU/L (9-52); ALBUMIN 3.1 g/dL (3.5-5.0); ALKALINE PHOSPHATASE 60 IU/L (38-126); ANION GAP 12 mEq/L (8-16); ASPARTATE AMINOTRANSFERASE 21 IU/L (14-46); BILIRUBIN,TOTAL 0.7 mg/dL (0.1-1.4); CALCIUM 8.8 mg/dL (8.5-10.4); CARBON DIOXIDE 23 mEq/l (22-31); CHLORIDE 107 mEq/L (97-110); CREATININE 0.8 mg/dL (0.6-1.0); GLOMERULAR FILTRATION RATE > 60; GLUCOSE 145 mg/dL (70-100); POTASSIUM 4.3 mEq/L (3.5-5.2); SODIUM 142 mEq/L (134-144); TOTAL PROTEIN 5.5 g/dL (6.3-8.2)
--- NOTE | 2017-10-23 11:30 | ASMTCMCOM ---
CM Note CM Note Notes: Pt. is a 76-year-old woman admitted with a ruptured appendix. Had surgery. Hx. former smoker and COPD. Pt. on O2 at home at baseline due to COPD. Pt. lives w/ Maksim. Anticipate independent d/c when ready. CM available should d/c POC change. Date Signed: 10/23/2017 11:30 AM Electronically Signed By:Maribel Sanchez LCSW
[2017-10-23] MEDS: ERTAPENEM 1 GM VIAL IVP SCH (13:04)
[2017-10-24] MEDS: FLUTICASONE/SALMETER 250/50MCG DISKUS IH SCH ×3 (00:18→21:47)
[2017-10-24] MEDS: ACETAMINOPHEN 500 MG TAB PO SCH ×4 (00:53→20:04)
[2017-10-24] MEDS: KETOROLAC 15 MG/1 ML SDV IVP SCH ×4 (05:30→18:02)
[2017-10-24 05:52] LABS: % IMMATURE GRANULYOCYTES 0.6 % (0.0-1.1); ABSOLUTE IMMATURE GRANULOCYTES 0.07 10^3/uL (0.00-0.10); ADD DIFF? NO; ADD MORPH? NO; ADD SCAN? NO; ATYPICAL LYMPHOCYTE FLAG 0 (0-99); FRAGMENT RBC FLAG 0 (0-99); HEMATOCRIT 38.4 % (38.0-47.0); HEMOGLOBIN 12.6 g/dL (12.6-16.3); LEFT SHIFT FLG 10 (0-99); LIPEMIA HEMOLYSIS FLAG 80 (0-99); MEAN CELL HEMOGLOBIN CONCENTR. 32.8 g/dL (32.4-36.7); MEAN CELL VOLUME 94.3 fL (81.5-99.8); MEAN PLATELET VOLUME 10.4 fL (8.7-11.7); PLATELET CLUMPS FLAG 10 (0-99); PLATELET COUNT 191 10^3/uL (150-400); RED BLOOD CELL COUNT 4.07 10^6/uL (4.18-5.33); RED CELL DISTRIBUTION WIDTH 13.8 % (11.5-15.2)
[2017-10-24 06:13] LABS: ALANINE AMINOTRANSFERASE 37 IU/L (9-52); ALBUMIN 2.6 g/dL (3.5-5.0); ALKALINE PHOSPHATASE 69 IU/L (38-126); ANION GAP 10 mEq/L (8-16); ASPARTATE AMINOTRANSFERASE 31 IU/L (14-46); BILIRUBIN,TOTAL 0.6 mg/dL (0.1-1.4); CALCIUM 8.5 mg/dL (8.5-10.4); CARBON DIOXIDE 23 mEq/l (22-31); CHLORIDE 111 mEq/L (97-110); CREATININE 0.8 mg/dL (0.6-1.0); GLOMERULAR FILTRATION RATE > 60; GLUCOSE 72 mg/dL (70-100); POTASSIUM 3.6 mEq/L (3.5-5.2); SODIUM 144 mEq/L (134-144); TOTAL PROTEIN 4.8 g/dL (6.3-8.2)
[2017-10-24] MEDS: ERTAPENEM 1 GM VIAL IVP SCH (09:17)
--- NOTE | 2017-10-24 10:15 | SOAPPROG ---
SOAP Progress Note Assessment/Plan: Assessment/Plan: 76yo F c perforated appendicitis - VSS, HDS, afebrile - abdomen is soft, she is passing flatus and has bowel sounds. Will ADV to clears today. - Tx to floor - OOB. - Cont O2 - Cont abx, cultures pending., 10/24/17 10:14 Subjective: feels good, wants to eat Objective: Vital Signs Temp Pulse Resp BP Pulse Ox 36.8 C 54 L 18 129/67 H 97 10/24/17 07:55 10/24/17 07:55 10/24/17 07:55 10/24/17 07:55 10/24/17 07:55 Laboratory Results 10/24/17 05:40 10/24/17 05:40 10/23/17 10/24/17 10/25/17 05:59 05:59 05:59 Intake Total 1755 Output Total 80 Balance 1675 ICD10 Worksheet Patient Problems: Problems Problem Status Onset Acute appendicitis Acute Fever Acute Hypoxia Acute COPD (chronic obstructive pulmonary disease) Acute Osteoarthritis of left hip Acute Osteoarthritis of right hip Acute
[2017-10-25] MEDS: KETOROLAC 15 MG/1 ML SDV IVP SCH ×4 (00:53→17:48)
[2017-10-25] MEDS: ACETAMINOPHEN 500 MG TAB PO SCH ×3 (05:46→21:57)
[2017-10-25 06:03] LABS: % IMMATURE GRANULYOCYTES 0.5 % (0.0-1.1); ABSOLUTE IMMATURE GRANULOCYTES 0.04 10^3/uL (0.00-0.10); ADD DIFF? NO; ADD MORPH? NO; ADD SCAN? NO; ATYPICAL LYMPHOCYTE FLAG 0 (0-99); FRAGMENT RBC FLAG 0 (0-99); HEMATOCRIT 36.2 % (38.0-47.0); HEMOGLOBIN 12.1 g/dL (12.6-16.3); LEFT SHIFT FLG 0 (0-99); LIPEMIA HEMOLYSIS FLAG 80 (0-99); MEAN CELL HEMOGLOBIN CONCENTR. 33.4 g/dL (32.4-36.7); MEAN CELL VOLUME 92.8 fL (81.5-99.8); MEAN PLATELET VOLUME 10.2 fL (8.7-11.7); PLATELET CLUMPS FLAG 20 (0-99); PLATELET COUNT 197 10^3/uL (150-400); RED CELL DISTRIBUTION WIDTH 13.5 % (11.5-15.2)
[2017-10-25 06:22] LABS: ALANINE AMINOTRANSFERASE 44 IU/L (9-52); ALBUMIN 2.6 g/dL (3.5-5.0); ALKALINE PHOSPHATASE 92 IU/L (38-126); ANION GAP 7 mEq/L (8-16); ASPARTATE AMINOTRANSFERASE 35 IU/L (14-46); BILIRUBIN,TOTAL 0.5 mg/dL (0.1-1.4); CARBON DIOXIDE 27 mEq/l (22-31); CHLORIDE 107 mEq/L (97-110); CREATININE 0.7 mg/dL (0.6-1.0); GLOMERULAR FILTRATION RATE > 60; GLUCOSE 80 mg/dL (70-100); POTASSIUM 3.8 mEq/L (3.5-5.2); SODIUM 141 mEq/L (134-144); TOTAL PROTEIN 5.1 g/dL (6.3-8.2)
[2017-10-25 07:04] LABS: CALCIUM 8.8 mg/dL (8.5-10.4)
[2017-10-25] MEDS: ERTAPENEM 1 GM VIAL IVP SCH (08:03)
--- NOTE | 2017-10-25 08:07 | SOAPPROG ---
SOAP Progress Note Assessment/Plan: 10/23/17 09:37 POD#1 Assessment: S/p laparoscopic appendectomy for a perforated appendix (with appendicolith) and peritonitis complicated by COPD. She is eructating this morning and not passing gas but feels much better. Bowel sounds are noted. BNP Elevated. Oxygen requirements decreasing (now 2 lpm ) Peritoneal fluid 4+ wbc 4+ gram neg rods 3+ gram + rods 1+ gram + cocci Plan: Labs pending, will watch in step down for one more day POD#3 10/25/17 08:04 Assessment: S/P appendectomy. Passing flatus. WBC down. BNP down. IOANA drainage clearing. - Doing well Plan: Blood cultures were positive for Bacteroides sp. Peritoneal cultures pending. Will await sensitivities to alter antibiotics. Subjective: I'm feeling well Objective: Vital Signs Temp Pulse Resp BP Pulse Ox 36.7 C 62 19 153/74 H 94 10/25/17 00:00 10/25/17 00:00 10/25/17 00:00 10/25/17 00:00 10/25/17 00:00 Laboratory Results 10/25/17 05:18 10/25/17 05:18 10/24/17 10/25/17 10/26/17 05:59 05:59 05:59 Intake Total 1755 Output Total 80 50 Balance 1675 -50 - Time Spent With Patient Time Spent With Patient: 15 - Pending Discharge Pending Discharge Within 24 Hours: No Physical Exam - Physical Exam General Appearance: WD/WN, alert, no apparent distress Neck: full range of motion, supple Respiratory: chest non-tender, lungs clear, normal breath sounds Cardiac/Chest: regular rate, rhythm Abdomen: normal bowel sounds, non-tender, soft, other (IOANA drainage slightly sanginous) Pelvic Exam: deferred Rectal: deferred Back: Normal inspection Skin: normal color, warm/dry Neuro/Psych: no motor/sensory deficits, alert, normal mood/affect, oriented x 3 ICD10 Worksheet Patient Problems: Problems Problem Status Onset Acute appendicitis Acute Fever Acute Hypoxia Acute COPD (chronic obstructive pulmonary disease) Acute Osteoarthritis of left hip Acute Osteoarthritis of right hip Acute
[2017-10-25] MEDS: FLUTICASONE/SALMETER 250/50MCG DISKUS IH SCH ×2 (11:46→21:52)
--- NOTE | 2017-10-25 16:57 | ASMTCMCOM ---
CM Note CM Note Notes: Spoke w/RN, pt will be here for several more days getting IV abx but will dc home w/support of when medically stable. CM available for any changes. DC Plan: Home Date Signed: 10/25/2017 04:56 PM Electronically Signed By:Abby Geller RN
[2017-10-25] MEDS ORDERED: AMOXICILLIN/CLAVULANATE POT 875/125 MG TAB PO SCH (20:00)
[2017-10-26] MEDS: KETOROLAC 15 MG/1 ML SDV IVP SCH ×4 (00:45→17:57)
[2017-10-26] MEDS ORDERED: FUROSEMIDE 20 MG TAB PO ONE (02:00)
[2017-10-26 05:25] LABS: HEMATOCRIT 37.1 % (38.0-47.0); HEMOGLOBIN 12.1 g/dL (12.6-16.3); MEAN CELL HEMOGLOBIN CONCENTR. 32.6 g/dL (32.4-36.7); MEAN CELL VOLUME 92.1 fL (81.5-99.8); RED BLOOD CELL COUNT 4.03 10^6/uL (4.18-5.33); RED CELL DISTRIBUTION WIDTH 13.2 % (11.5-15.2)
[2017-10-26] MEDS: ACETAMINOPHEN 500 MG TAB PO SCH ×3 (05:33→21:26)
[2017-10-26 05:44] LABS: ANION GAP 8 mEq/L (8-16); CALCIUM 8.8 mg/dL (8.5-10.4); CARBON DIOXIDE 31 mEq/l (22-31); CHLORIDE 106 mEq/L (97-110); CREATININE 0.8 mg/dL (0.6-1.0); GLOMERULAR FILTRATION RATE > 60; GLUCOSE 104 mg/dL (70-100); POTASSIUM 3.5 mEq/L (3.5-5.2); SODIUM 145 mEq/L (134-144)
[2017-10-26] MEDS: ERTAPENEM 1 GM VIAL IVP SCH (08:19)
[2017-10-26] MEDS: FLUTICASONE/SALMETER 250/50MCG DISKUS IH SCH ×2 (09:32→21:46)
--- NOTE | 2017-10-26 13:54 | SOAPPROG ---
SOAP Progress Note Assessment/Plan: 10/23/17 09:37 POD#1 Assessment: S/p laparoscopic appendectomy for a perforated appendix (with appendicolith) and peritonitis complicated by COPD. She is eructating this morning and not passing gas but feels much better. Bowel sounds are noted. BNP Elevated. Oxygen requirements decreasing (now 2 lpm ) Peritoneal fluid 4+ wbc 4+ gram neg rods 3+ gram + rods 1+ gram + cocci Plan: Labs pending, will watch in step down for one more day POD#3 10/25/17 08:04 Assessment: S/P appendectomy. Passing flatus. WBC down. BNP down. IOANA drainage clearing. - Doing well Plan: Blood cultures were positive for Bacteroides sp. Peritoneal cultures pending. Will await sensitivities to alter antibiotics. POD#4 Assessment: Patient feeling well. IOANA drainage is now serous. I have asked Dr. Johanna Rebolledo of Infectious Disease to consult regarding antibiotic therapy given Positive blood cultures. BP up last night. responded to lasix Plan: Await ID input. Subjective: I feel great! Objective: Vital Signs Temp Pulse Resp BP Pulse Ox 36.6 C 69 16 167/84 H 91 L 10/26/17 07:35 10/26/17 07:35 10/26/17 07:35 10/26/17 07:35 10/26/17 07:35 Laboratory Results 10/26/17 05:07 10/26/17 05:07 10/25/17 10/26/17 10/27/17 05:59 05:59 05:59 Output Total 50 20 10 Balance -50 -20 -10 - Time Spent With Patient Time Spent With Patient: 15 Physical Exam - Physical Exam General Appearance: WD/WN, alert, no apparent distress Neck: non-tender, full range of motion, supple Respiratory: chest non-tender, lungs clear, normal breath sounds Cardiac/Chest: regular rate, rhythm Abdomen: normal bowel sounds, non-tender, soft Pelvic Exam: deferred Rectal: deferred Back: Normal inspection Skin: normal color, warm/dry ICD10 Worksheet Patient Problems: Problems Problem Status Onset Acute appendicitis Acute Fever Acute Hypoxia Acute COPD (chronic obstructive pulmonary disease) Acute Osteoarthritis of left hip Acute Osteoarthritis of right hip Acute
--- NOTE | 2017-10-26 15:13 | GCON ---
[f rep st] CONSULTATION INFECTIOUS DISEASES CONSULTATION DATE OF CONSULTATION: 10/26/2017 REFERRING PHYSICIAN: Jordy Dias MD REASON FOR CONSULT: Assist in the management of this 76-year-old female admitted for acute gangrenous appendicitis/peritonitis and bacteremia. We were asked to assist in her antibiotic management. HISTORY OF PRESENT ILLNESS: The patient is a 76-year-old female whose previous medical history is notable for the followin. History of bilateral hip replacements. 2. L4-L5 laminectomy. 3. Carpal tunnel surgery. 4. Bilateral cataract extraction. 5. History of right lumpectomy 14 years ago, treated with radiation and chemotherapy for breast carcinoma. 6. 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 Regarding her present issues, the patient presented to [facility] on October 22, complaining of abdominal pain that began the day before. She thought she had gas. A CT scan of the abdomen and pelvis performed revealed an appendicolith and dilation of the tip of the appendix with a small amount of fluid around the tip of the appendix. The patient's white blood cell count was 15,700. Dr. Jordy Dias of General Surgery was consulted, and the patient underwent a laparoscopic appendectomy on October 23. On speaking with Dr. Dias, the patient was found to have a necrotic, gangrenous appendix that had burst with fecal spillage into the peritoneum. He states that this was thoroughly washed out. The patient was started on ertapenem and she has done well on this antibiotic. Of note, blood cultures drawn on admission are growing Bacteroides species and peritoneal cultures are growing a najera- susceptible E coli and Strep anginosus. I am asked to assist in her antibiotic management moving forward. In speaking with the patient today, she is doing much better. She has tolerated this antibiotic without any nausea, vomiting, or change in mental status. She is passing gas and eating liquids. She does have a drain in place that is draining opaque fluid, but is starting to become more serous in nature and smaller in volume. REVIEW OF SYSTEMS: Positive only for some mild abdominal discomfort, but otherwise 10 systems were reviewed and all were negative. PREVIOUS MEDICAL HISTORY: As outlined above. ALLERGIES: Sulfa causes fever and rash. MEDICATIONS: Presently include ertapenem 1 g IV daily (day #4), Ventolin, Tylenol, Toradol, and Advair. SOCIAL HISTORY: The patient lives in [place]. Here with her . No pets. No tobacco. One to two glasses of wine at night. No illicit substances. FAMILY HISTORY: Noncontributory. PHYSICAL EXAM: VITAL SIGNS: T current is 36.6, T-max is the same. Heart rate is 69, blood pressure 167/84, 91% on 2 L. GENERAL: A well-nourished, well- developed, elderly female, sitting up in bed, no apparent distress. HEENT: Atraumatic, normocephalic. Pupils equal, round, reactive to light. Extraocular movements are intact. No conjunctival injection. No icterus, no petechiae. Bilateral surgical pupils. No sinus process tenderness or discharge from the nares. Mucous membranes moist. No oral lesions noted. Dentition in fair repair. NECK: Trachea is midline. No cervical or supraclavicular lymphadenopathy. CARDIOVASCULAR: S1, S2. No rubs, gallops, or murmurs. LUNGS: No increased respiratory effort. Clear to auscultation bilaterally with no rales, rhonchi, or wheeze. ABDOMEN: Soft. IOANA drain in left lower quadrant with some opaque fluid in it, perhaps 20 cc. The patient's trocar incisions have Steri-Strips in place without evidence of erythema or drainage. The patient's abdomen is notable for hyperactive bowel sounds and minimal tenderness to palpation at the left and right lower quadrants. NEUROLOGIC: She is alert and oriented x3. SKIN: Notable for a few small scabbed lesions on her left lower extremity consistent with squamous cell carcinoma, per the patient. MUSCULOSKELETAL: Evidence of osteoarthritis in her hands. LABORATORY DATA: Microbiologic Data: Blood culture on October 22 is growing Bacteroides thetaiotaomicron. October 23 peritoneal fluid is growing E coli and Strep anginosus. BUN and creatinine 22/0.8. White blood cell count of 7.8 (down from 17 on admission), hematocrit 37, platelet count of 227. Radiographic data as outlined above. IMPRESSION: 76-year-old female status post laparoscopic appendectomy for a gangrenous ruptured appendix with gross fecal spillage and peritonitis. She was also bacteremic with Bacteroides. Thankfully, the patient is improving nicely and is tolerating Ertapenem. Given the nature of her infection with concomitant bacteremia, would prefer a course of intravenous therapy. This was explained to the patient today, and she is agreeable to this. PLAN: 1. Continue Ertapenem as is for ease of administration as an outpatient. 2. PICC line tomorrow afternoon, and likely home Friday. 3. The drain for now will likely stay in place as per Dr. Dias for at least another few days. Thank you very much for consulting Infectious Diseases. We will continue to follow this patient with you. /[id number]/MODL MTDD
--- NOTE | 2017-10-26 16:24 | ASMTCMCOM ---
CM Note CM Note Notes: Reviewed chart, spoke w/ Dr. Rebolledo regarding discharge plan, pt's progress. Per Dr. Rebolledo, pt will likely require 10-14 days of IV Invanz and home care services. Referral faxed via [employer] to [facility]. CM will need to meet w/ pt and family to discuss home care options on 10/27/17. CM will cont to follow. Current discharge plan: Home w/ home care and IV infusion services Date Signed: 10/26/2017 04:24 PM Electronically Signed By:Inna Paniagua RN
[2017-10-27] MEDS: KETOROLAC 15 MG/1 ML SDV IVP SCH ×5 (00:35→23:46)
[2017-10-27 05:12] LABS: HEMATOCRIT 38.3 % (38.0-47.0); HEMOGLOBIN 12.7 g/dL (12.6-16.3); MEAN CELL HEMOGLOBIN 30.4 pg (27.9-34.1); MEAN CELL HEMOGLOBIN CONCENTR. 33.2 g/dL (32.4-36.7); MEAN CELL VOLUME 91.6 fL (81.5-99.8); RED BLOOD CELL COUNT 4.18 10^6/uL (4.18-5.33); RED CELL DISTRIBUTION WIDTH 13.2 % (11.5-15.2)
[2017-10-27 05:22] LABS: ANION GAP 9 mEq/L (8-16); CALCIUM 8.8 mg/dL (8.5-10.4); CARBON DIOXIDE 31 mEq/l (22-31); CHLORIDE 105 mEq/L (97-110); CREATININE 0.7 mg/dL (0.6-1.0); GLOMERULAR FILTRATION RATE > 60; GLUCOSE 96 mg/dL (70-100); POTASSIUM 3.8 mEq/L (3.5-5.2); SODIUM 145 mEq/L (134-144)
[2017-10-27] MEDS: ACETAMINOPHEN 500 MG TAB PO SCH ×3 (05:49→21:19)
[2017-10-27] MEDS: ERTAPENEM 1 GM VIAL IVP SCH (08:58)
[2017-10-27] MEDS: FLUTICASONE/SALMETER 250/50MCG DISKUS IH SCH ×2 (09:12→21:17)
--- NOTE | 2017-10-27 12:06 | PCMIDPN ---
Assessment/Plan: Assessment/Plan: * Gangrenous appendicitis with peritoneal contamination/peritonitis s/p appendectomy and washout with concomitant Bacteroides bacteremia: Operative cultures with growth of S. anginosus and E. coli. Clinically improved post operatively. Plan 2 weeks of ertapenem post-negative blood cultures (11/09/17) which will have activity against isolated pathogens and provides for daily infusions. Begin discharge planning regarding outpatient IV antibiotics. Place PICC line which was discussed with patient today. 10/27/17 12:03 Subjective: Patient feels much better. Mild abdominal discomfort. Objective: Vital Signs Temp Pulse Resp BP Pulse Ox 36.9 C 66 16 144/87 H 90 L 10/27/17 08:03 10/27/17 09:10 10/27/17 09:10 10/27/17 08:03 10/27/17 09:10 Laboratory Results 10/27/17 05:00 10/27/17 05:00 10/26/17 10/27/17 10/28/17 05:59 05:59 05:59 Output Total 20 20 Balance -20 -20 Ertapenem #5 Blood cultures 10/26/17 pending Operative cultures with growth of E. coli and S. anginosus - Physical Exam General Appearance: alert, no apparent distress EENT: No scleral icterus, No thrush Respiratory: lungs clear, No respiratory distress Cardiac/Chest: regular rate, rhythm Abdomen: distended (mild), tender (mild), other (serous output in IOANA drain) ICD10 Worksheet Patient Problems: Problems Problem Status Onset Acute appendicitis Acute Fever Acute Hypoxia Acute COPD (chronic obstructive pulmonary disease) Acute Osteoarthritis of left hip Acute Osteoarthritis of right hip Acute
--- NOTE | 2017-10-27 13:38 | ASMTCMCOM ---
CM Note CM Note Notes: Kaci from [facility] came in to see pt today. Pt will have a $45/day co pay. Pt reports that she will come to [facility] outpatient infusion center. CM spoke w/ Dr. Guillermo regarding d/c POC. CM met w/ pt for dispo planning. Pt does not anticipating having any needs other than outpatient infusion. CM notified [facility] apartment community manager to schedule a outpatient infusion time. Pt has selected 11:30AM. Pt will tenatively start on . CM available for changes. Plan: Outpatinet infusion otherwise independent Date Signed: 10/27/2017 01:38 PM Electronically Signed By:ERIN Atwood
--- NOTE | 2017-10-27 15:26 | SOAPPROG ---
SOAP Progress Note Assessment/Plan: 10/23/17 09:37 POD#1 Assessment: S/p laparoscopic appendectomy for a perforated appendix (with appendicolith) and peritonitis complicated by COPD. She is eructating this morning and not passing gas but feels much better. Bowel sounds are noted. BNP Elevated. Oxygen requirements decreasing (now 2 lpm ) Peritoneal fluid 4+ wbc 4+ gram neg rods 3+ gram + rods 1+ gram + cocci Plan: Labs pending, will watch in step down for one more day POD#3 10/25/17 08:04 Assessment: S/P appendectomy. Passing flatus. WBC down. BNP down. IOANA drainage clearing. - Doing well Plan: Blood cultures were positive for Bacteroides sp. Peritoneal cultures pending. Will await sensitivities to alter antibiotics. POD#4 Assessment: Patient feeling well. IOANA drainage is now serous. I have asked Dr. Johanna Rebolledo of Infectious Disease to consult regarding antibiotic therapy given Positive blood cultures. BP up last night. responded to lasix Plan: Await ID input. POD#5 10/27/17 15:23 ID note appreciated. Assessment: Doing well at this time. IOANA output dropped. As the IOANA output was serous, I removed it. Plan: PICC line today and discharge after Invanz dose tomorrow Subjective: I feel great Objective: Vital Signs Temp Pulse Resp BP Pulse Ox 36.9 C 66 16 144/87 H 90 L 10/27/17 08:03 10/27/17 09:10 10/27/17 09:10 10/27/17 08:03 10/27/17 09:10 Laboratory Results 10/27/17 05:00 10/27/17 05:00 10/26/17 10/27/17 10/28/17 05:59 05:59 05:59 Output Total 20 20 Balance -20 -20 - Time Spent With Patient Time Spent With Patient: 25 - Pending Discharge Pending Discharge Within 24 Hours: Yes Pending Discharge Date: 10/28/17 Pending Discharge Time: 11:00 Physical Exam - Physical Exam General Appearance: WD/WN, alert, no apparent distress Respiratory: chest non-tender, lungs clear, normal breath sounds Cardiac/Chest: regular rate, rhythm Abdomen: normal bowel sounds, non-tender, soft, other (IOANA had 20cc out in last 24. Drainage is serous. Drain removed. Other incisions are clean and dry) Pelvic Exam: deferred Rectal: deferred Back: Normal inspection Skin: normal color, warm/dry Neuro/Psych: no motor/sensory deficits, alert, normal mood/affect, oriented x 3 ICD10 Worksheet Patient Problems: Problems Problem Status Onset Acute appendicitis Acute Fever Acute Hypoxia Acute COPD (chronic obstructive pulmonary disease) Acute Osteoarthritis of left hip Acute Osteoarthritis of right hip Acute
--- NOTE | 2017-10-28 02:44 | GDS ---
[f rep st] DISCHARGE SUMMARY ANTICIPATED DATE OF DISCHARGE: 10/28/2017. DISCHARGE DIAGNOSIS: Acute ruptured appendicitis with peritonitis and positive blood cultures CONDITION AT DISCHARGE: Improved. DISCHARGE DISPOSITION: Home, but return for outpatient daily intravenous antibiotic therapy for the next 14 days. MEDICATIONS AT DISCHARGE: Include Motrin 200 mg every 6 hours. She will take Tylenol 1000 mg every 8 hours. She has Dilaudid 2 mg every 4 hours as needed for severe pain. She will continue her home medications which include albuterol 1-2 puffs every 4 hours. She will use her Advair 250/50 Diskus 1 puff twice a day. She will use her calcium carbonate 1000 mg daily. She will take glucosamine 500 mg daily and a multivitamin daily. She will get 1 g of ertapenem IV for the next 14 days. DISCHARGE INSTRUCTIONS: 1. Diet is unrestricted. I suggest she avoid constipating foods such as bananas, rice, applesauce, and cheese. 2. For the next 3 weeks, she will lift less than 10 pounds, shower only. Take a multivitamin with zinc, copper and C daily. 3. She is to watch for signs of superficial infection manifested by swelling, redness, warmth, and tenderness, and deep space infection manifested by loss of appetite, bloating, fevers, chills, and general malaise. 4. She is being seen by the Infectious Disease Team because of her blood culture which was positive for Bacteroides thetaiotaomicron and her peritoneal cultures which were positive for E coli and Streptococcus aeruginosa. HOSPITAL COURSE: Her hospital course has been uneventful. She went to surgery. Aggressive irrigation was carried out. A drain was placed. Her drain was removed today, postop day #5, as the drainage had become serous, and was down to 20 cc in the last 24-hour period. All incisions are clean and dry. She will receive a PICC line this afternoon. She will receive her 1st infusion of ertapenem tomorrow morning through her PICC line. If all goes well, she will then be discharged, to return to the outpatient department for ertapenem. /[id number]/MODL MTDD
[2017-10-28] MEDS: ACETAMINOPHEN 500 MG TAB PO SCH ×2 (08:13→13:46)
[2017-10-28] MEDS: ERTAPENEM 1 GM VIAL IVP SCH (08:23)
[2017-10-28] MEDS: FLUTICASONE/SALMETER 250/50MCG DISKUS IH SCH (08:53)
[2017-10-28] MEDS ORDERED: FUROSEMIDE 20 MG/2 ML VIAL IVP ONE (09:15)
--- NOTE | 2017-10-28 11:19 | PDIAF ---
- Diagnosis Diagnosis: s/p perforated appendicitis Code Status: Full Code - Medication Management Discharge Medications: Medications to Continue on Transfer Calcium Carbonate [Oyster Shell Calcium 500 mg (*)] 1,000 mg PO DAILY@1200 05/03 [Last Taken 10/21/17] Multivitamins [Multivitamin (*)] 1 each PO DAILY 05/03/16 [Last Taken 10/21/17] Fluticasone/Salmeter 250/50Mcg [Advair 250/50 (*)] 1 puffs IH BID #1 disk [Last Taken 10/21/17] Glucosamine Sulfate [Glucosamine Sulfate 500 MG (*)] 500 mg PO DAILY 10/30/16 [ Last Taken 10/21/17] Albuterol [Proventil Inhaler HFA (*)] 1 - 2 puffs IH Q4H PRN 10/22/17 [Last Taken 10/21/17] Acetaminophen [Tylenol ES 500 mg (*)] 1,000 mg PO Q8H tab 10/27/17 [Last Taken Unknown] Ertapenem [INVanz] 1 gm IVP DAILY 14 Days vial 10/27/17 [Last Taken Unknown] HYDROmorphone HCL [Dilaudid 2 mg (*)] 2 mg PO Q4 #15 tab 10/27/17 [Last Taken Unknown] Ibuprofen [Motrin (*)] 200 mg PO Q6H PRN #30 10/27/17 [Last Taken 1 Week Ago ~] [facility] Antibiotics: Ertapenem 1 g IV daily x 14 days [facility] Antibiotic Stop Date: 11/11/17 Discharge Medications: Refer to the Discharge Home Medication list for PRN reason. PICC Care - Routine: Yes - Orders Services needed: Home Care, Registered Nurse Home Care Face to Face: I certify that this patient was under my care and that I had the required [id number] encounter meeting the encounter requirements on the discharge day. My findings support the fact that the patient is homebound as defined in Home Care Face to Face Continued: CMS Chapter 7 Medicare Benefits Manual 30.1.1 , The condition of the patient is such that there exists a normal inability to leave home and consequently, leaving home would require a considerable and taxing effort. Diet Recommendation: no restrictions on diet Diet Texture: Regular Texture Diet Wound Care Instructions: For three weeks: lift < 10 pounds x 3 weeks. Shower only. Take a multivitamin with zinc, copper and "C". watch for signs of infection: SUPERFICIALredness, warmth, tenderness, and swelling. DEEP SPACEmalaise, loss of appetite, fever, chills, bloating Activity/Weight Bearing Restrictions: For three weeks: lift < 10 pounds x 3 weeks. Shower only. Take a multivitamin with zinc, copper and "C". watch for signs of infection: SUPERFICIALredness, warmth, tenderness, and swelling. DEEP SPACEmalaise, loss of appetite, fever, chills, bloating - Follow Up Care Current Providers and Referrals: Norma Hernández MD [Primary Care Provider] - As per Instructions Jose Rafael Kline MD [Medical Doctor] - follow up in 2 weeks
--- NOTE | 2017-10-28 11:22 | SOAPPROG ---
SOAP Progress Note Assessment/Plan: Assessment/Plan: 76 Y F s/p perforated appendicitis. Doing quite well aside from new high blood pressure. D/c arrangements made per Dr. Dias. Hypertensive this am. Possibly 2/2 fluid overload. Repeat dose lasix this am. If does well, then d/c to home. Pt has PICC and 2 weeks of outpt invanz planned. [facility]agency dc form filled out. Seen with Dr. Kline. S: eating, +bms, no n/v. no fatigue O: alert, nad mmm ctab rrr abd soft, inc cdi, drain removed 10/28/17 11:19 Objective: Vital Signs Temp Pulse Resp BP Pulse Ox 36.7 C 65 14 160/86 H 95 10/28/17 08:00 10/28/17 08:54 10/28/17 08:54 10/28/17 08:00 10/28/17 08:54 Laboratory Results 10/27/17 05:00 10/27/17 05:00 10/27/17 10/28/17 10/29/17 05:59 05:59 05:59 Intake Total 300 Output Total 20 Balance -20 300 ICD10 Worksheet Patient Problems: Problems Problem Status Onset Acute appendicitis Acute Fever Acute Hypoxia Acute COPD (chronic obstructive pulmonary disease) Acute Osteoarthritis of left hip Acute Osteoarthritis of right hip Acute
--- NOTE | 2017-10-28 11:41 | PCMIDPN ---
Assessment/Plan: Assessment/Plan: 1. Gangrenous appendicitis with peritoneal contamination/peritonitis: s/p appendectomy and washout -s/p lap appy - cultures with E. coli/strep anginosus. susceptibilities reviewed - Currently on invanz therapy - Clinically improved - plan for two week of invanz from negative blood cx - will complete interagency and make f/u appt. - care coordinated with RN, 2. Bacteroides bacteremia: - secondary to #1. - f/u blood cx from 10/26/17 ngtd - see above for plan of care. Meds invanz 1g daily- Subjective: afebrile. feeling better overall. no abd pain. having bm, slight loose. denies sob. on o2 at home usually at night at 2L. has some chronic cough. Objective: Vital Signs Temp Pulse Resp BP Pulse Ox 36.7 C 65 14 160/86 H 95 10/28/17 08:00 10/28/17 08:54 10/28/17 08:54 10/28/17 08:00 10/28/17 08:54 Laboratory Results 10/27/17 05:00 10/27/17 05:00 10/27/17 10/28/17 10/29/17 05:59 05:59 05:59 Intake Total 300 Output Total 20 Balance -20 300 - Physical Exam General Appearance: alert, no apparent distress Respiratory: lungs clear Cardiac/Chest: regular rate, rhythm Extremities: No swelling Abdomen: normal bowel sounds, non-tender, soft, No distended Skin: No erythema - Time Spent With Patient Time Spent with Patient: greater than 35 minutes Time Spent with Patient: Greater than 35 minutes spent on this patients care, greater than 50% of time spent counseling, educating, and coordinating care regarding the above mentioned plan. ICD10 Worksheet Patient Problems: Problems Problem Status Onset Acute appendicitis Acute Fever Acute Hypoxia Acute COPD (chronic obstructive pulmonary disease) Acute Osteoarthritis of left hip Acute Osteoarthritis of right hip Acute
--- NOTE | 2017-10-28 11:47 | PDIAF ---
- Diagnosis Diagnosis: s/p perforated appendicitis Code Status: Full Code - Medication Management Discharge Medications: Medications to Continue on Transfer Calcium Carbonate [Oyster Shell Calcium 500 mg (*)] 1,000 mg PO DAILY@1200 05/03 [Last Taken 10/21/17] Multivitamins [Multivitamin (*)] 1 each PO DAILY 05/03/16 [Last Taken 10/21/17] Fluticasone/Salmeter 250/50Mcg [Advair 250/50 (*)] 1 puffs IH BID #1 disk [Last Taken 10/21/17] Glucosamine Sulfate [Glucosamine Sulfate 500 MG (*)] 500 mg PO DAILY 10/30/16 [ Last Taken 10/21/17] Albuterol [Proventil Inhaler HFA (*)] 1 - 2 puffs IH Q4H PRN 10/22/17 [Last Taken 10/21/17] Acetaminophen [Tylenol ES 500 mg (*)] 1,000 mg PO Q8H tab 10/27/17 [Last Taken Unknown] Ertapenem [INVanz] 1 gm IVP DAILY 14 Days vial 10/27/17 [Last Taken Unknown] HYDROmorphone HCL [Dilaudid 2 mg (*)] 2 mg PO Q4 #15 tab 10/27/17 [Last Taken Unknown] Ibuprofen [Motrin (*)] 200 mg PO Q6H PRN #30 10/27/17 [Last Taken 1 Week Ago ~] Alf Antibiotics: Ertapenem 1 g IV daily x 14 days Alf Antibiotic Stop Date: 11/11/17 Discharge Medications: Refer to the Discharge Home Medication list for PRN reason. PICC Care - Routine: Yes - Orders Services needed: Home Care, Registered Nurse Home Care Face to Face: I certify that this patient was under my care and that I had the required [id number] encounter meeting the encounter requirements on the discharge day. My findings support the fact that the patient is homebound as defined in Home Care Face to Face Continued: CMS Chapter 7 Medicare Benefits Manual 30.1.1 , The condition of the patient is such that there exists a normal inability to leave home and consequently, leaving home would require a considerable and taxing effort. Diet Recommendation: no restrictions on diet Diet Texture: Regular Texture Diet Wound Care Instructions: For three weeks: lift < 10 pounds x 3 weeks. Shower only. Take a multivitamin with zinc, copper and "C". watch for signs of infection: SUPERFICIALredness, warmth, tenderness, and swelling. DEEP SPACEmalaise, loss of appetite, fever, chills, bloating Activity/Weight Bearing Restrictions: For three weeks: lift < 10 pounds x 3 weeks. Shower only. Take a multivitamin with zinc, copper and "C". watch for signs of infection: SUPERFICIALredness, warmth, tenderness, and swelling. DEEP SPACEmalaise, loss of appetite, fever, chills, bloating - Labs/Radiology CBC w/diff Date: 11/03/17 CMP Date: 11/03/17 CRP Date: 11/03/17 Call or Fax Lab and Imaging Results to: fax to Dr. Miles ([phone]) - Follow Up Care Current Providers and Referrals: Norma Hernández MD [Primary Care Provider] - As per Instructions Jose Rafael Kline MD [Medical Doctor] - follow up in 2 weeks Brendan Miles MD [Medical Doctor] - 11/05/17 1:30 pm (f/u with Dr. Miles ( INfectious diseases) on 11/05/17 at 1:30pm. check in time is at--1:10pm. Thanks. )
[2017-10-28 15:41] VITALS: BP 168/87; PULSE 71; RESP 16; TEMP 98.3; O2SAT 93
== END 2017-10-28 18:19 | disposition home or self-care (01) | DRG 339 ==
LOC: F2N 10-23 01:52 → OBSVTOIN 10-23 12:12 → F3E 10-24 10:48
PROVIDERS: ADMIT Surgery; ATTEND Surgery
PROC: 0DTJ4ZZ Resection of Appendix, Percutaneous Endoscopic Approach (ICD-10-PCS; principal; 2017-10-23)
PROC: 02HV33Z Insertion of Infusion Device into Superior Vena Cava, Percutaneous Approach (ICD-10-PCS; 2017-10-28)
DX: K35.2 Acute appendicitis with generalized peritonitis (principal); R78.81 Bacteremia; J44.9 Chronic obstructive pulmonary disease, unspecified; Z96.643 Presence of artificial hip joint, bilateral; Z85.3 Personal history of malignant neoplasm of breast; Z85.820 Personal history of malignant melanoma of skin
CPT/HCPCS: 82947-QW; 96374; C1751; G0378; J1100; J1335; J1885; J1940; J2370; J2405; J2704; J3010; Q9967

== ENCOUNTER → 2018-08-06 | Outpatient (CLI) | payer OTHER | LOC: FIMAGING 09:47 | PROVIDERS: ATTEND Internal Medicine | DX: Z12.31 Encounter for screening mammogram for malignant neoplasm of breast (principal); Z85.3 Personal history of malignant neoplasm of breast ==